=== PATIENT | female | born 1995 | race Caucasian/White ===

== ENCOUNTER 2022-10-11 09:09 | Emergency (ER) | payer BC ==
[~2022-10-11] VITALS: Ht 154.9 cm; Wt 59.0 kg
[2022-10-11 10:13] LABS: BASOPHILS % 0.8 % (0.0-2.0); HEMATOCRIT. 40.4 % (36.0-48.0); HEMOGLOBIN. 13.6 g/dL (12.0-16.0); LYMPHOCYTES % 21.3 % (20.0-50.0); MEAN CORPUSCULAR HEMOGLOBIN 29.6 pg (28.0-32.0); MEAN CORPUSCULAR VOLUME 88.2 fL (81.0-99.0); MEAN PLATELET VOLUME 8.8 fl (7.4-10.4); MONOCYTES % 7.5 % (2.0-8.0); NEUTROPHILS % 68.4 % (40.0-76.0); PLATELET 327 x1000/uL (130-400); RED BLOOD CELL COUNT 4.58 mill/uL (4.2-5.4); RED CELL DISTRIBUTION WIDTH 13.1 % (11.6-14.6)
[2022-10-11 10:14] LABS: CLARITY URINE CLOUDY (CLEAR); COLOR URINE YELLOW (YELLOW); KETONES URINE NEGATIVE (NEGATIVE); LEUKOCYTE ESTERASE URINE 2+ (NEGATIVE); NITRITE URINE NEGATIVE (NEGATIVE); OCCULT BLOOD URINE NEGATIVE (NEGATIVE); PH URINE 7.5 (4.5-8.0); PROTEIN URINE NEGATIVE (NEGATIVE); SPECIFIC GRAVITY URINE 1.019 (1.005-1.030); UROBILINOGEN URINE 0.2 E.U./dL (0.2-1.0)
[2022-10-11 10:18] LABS: CHLORIDE 109 mEq/L (98-107)
[2022-10-11 10:42] LABS: B-HCG QUANTITATIVE 14252 mIU/mL (<3)
[2022-10-11 12:17] VITALS: BP 138/78
== END 2022-10-11 12:19 | disposition home or self-care (01) ==
LOC: ER 09:09
DX: O20.0 Threatened abortion (principal); Z3A.01 Less than 8 weeks gestation of pregnancy
CPT/HCPCS: 36415; 76801; 80053; 81003; 81025; 84702; 85025; 86850; 86900; 87077; 87186; 99284